=== PATIENT | female | born 1990 | race Caucasian/White ===

== ENCOUNTER 2017-11-01 16:13 | Inpatient (IN) | payer OTHER ==
[~2017-11-01] VITALS: Ht 157.5 cm; Wt 82.0 kg
[~2017-11-01 16:13] MED LIST: CEPH500 PO; CIPR500 PO; DOXY100 PO; HYDR1TAB94 PO; IBUP800 PO; PROM25 PO; Percocet 5-3251 EACH PO; Pseudoephedrine30 MG PO; Pyridium200 MG PO; TYLECOD3 PO; Verotin-Gr Cap1 EACH PO
[2018-02-25 14:55] LABS: BASOPHILS ABSOLUTE AUTO 0.04 K/mm3 (0.00-0.23); BASOPHILS PERCENT AUTO 0 % (0-2); EOSINOPHILS ABSOLUTE AUTO 0.19 K/mm3 (0.00-0.68); EOSINOPHILS PERCENT AUTO 1 % (0-6); Hematocrit 32.9 % (33.0-51.0); IMMATURE GRAN ABSOLUTE AUTO 0.15 K/mm3 (0.00-0.10); IMMATURE GRAN PERCENT AUTO 1 % (0-1); LYMPHOCYTES ABSOLUTE AUTO 2.74 K/mm3 (0.84-5.20); LYMPHOCYTES PERCENT AUTO 21 % (21-46); MONOCYTES ABSOLUTE AUTO 0.93 K/mm3 (0.16-1.47); MONOCYTES PERCENT AUTO 7 % (4-13); Mean Corpuscular HGB 30.6 pg (26.0-34.0); Mean Corpuscular HGB Conc 33.4 g/dL (31.5-36.5); Mean Corpuscular Volume 92 fL (80-100); Mean Platelet Volume 9.8 fL (9.1-12.4); NEUTROPHILS ABSOLUTE AUTO 9.09 K/mm3 (1.96-9.15); NEUTROPHILS PERCENT AUTO 69 % (41-73); Platelet Count 191 K/mm3 (150-400); RDW Coefficient Variation 14.4 % (11.7-14.2); RDW Standard Deviation 48.5 fL (35.1-46.3); Red Blood Cell Count 3.59 M/mm3 (3.80-5.20); White Blood Cell Count 13.14 K/mm3 (4.00-11.30)
[2018-02-27 08:11] LABS: PCO2 Cord - Arterial 51.1 mmHg (40-50); PO2 Cord - Arterial 18.5 mmHg (16-20); pH Cord - Arterial 7.31 (7.28-7.35)
[2018-02-27 08:13] LABS: PCO2 Cord - Venous 41.3 mmHg (40-50); PO2 Cord - Venous 31.1 mmHg (28-32); pH Umbilical Cord - Venous 7.37 (7.26-7.35)
[2018-02-28 05:39] LABS: Hematocrit 29.9 % (33.0-51.0); Hemoglobin 9.9 g/dL (11.5-16.0); Mean Corpuscular HGB 30.4 pg (26.0-34.0); Mean Corpuscular HGB Conc 33.1 g/dL (31.5-36.5); Mean Corpuscular Volume 92 fL (80-100); Mean Platelet Volume 9.9 fL (9.1-12.4); Platelet Count 143 K/mm3 (150-400); RDW Coefficient Variation 14.3 % (11.7-14.2); RDW Standard Deviation 48.2 fL (35.1-46.3); Red Blood Cell Count 3.26 M/mm3 (3.80-5.20); White Blood Cell Count 13.09 K/mm3 (4.00-11.30)
[2018-03-02] MEDS ORDERED: Percocet 5-3251 EACH PO (09:26)
[2018-03-02] MEDS ORDERED: IBUP100S PO (09:26)
== END 2018-03-02 09:45 | disposition home or self-care (01) | DRG 766 ==
LOC: BC 02-27 05:37 → PRE IP 02-27 07:30 → BC 02-27 07:30
PROVIDERS: Obstetrics & Gynecology
PROC: 10D00Z1 Extraction of Products of Conception, Low, Open Approach (ICD-10-PCS; principal; 2018-02-27 07:30)
DX: O34.211 Maternal care for low transverse scar from previous cesarean delivery (principal); Z3A.39 39 weeks gestation of pregnancy; Z37.0 Single live birth; Z88.0 Allergy status to penicillin
CPT/HCPCS: 36415; 82803; 85025; 85027; 86850; 86900; 86901; J0690; J1885; J2590; J2765; J3010; J7120; Q0163

== ENCOUNTER 2018-11-02 18:46 | Emergency (ER) | payer OTHER ==
[~2018-11-02] VITALS: Ht 157.5 cm; Wt 68.0 kg
[~2018-11-02 18:46] MED LIST changes: +IBUP100S PO
[2018-11-02] MEDS ORDERED: Cleocin HCl300 MG PO (19:59)
== END 2018-11-02 20:19 | disposition home or self-care (01) ==
LOC: ER 18:46
DX: K04.7 Periapical abscess without sinus (principal); Z88.0 Allergy status to penicillin; Z87.891 Personal history of nicotine dependence
CPT/HCPCS: 64400; 99282-25

== ENCOUNTER 2019-10-16 11:03 | Emergency (ER) | payer OTHER ==
[~2019-10-16] VITALS: Ht 160 cm; Wt 72.6 kg
[~2019-10-16 11:03] MED LIST changes: +Cleocin HCl300 MG PO
[2019-10-16] MEDS ORDERED: Ultram50 MG PO (12:17)
== END 2019-10-16 12:39 | disposition home or self-care (01) ==
LOC: ER 11:03
DX: K04.7 Periapical abscess without sinus (principal); Z88.0 Allergy status to penicillin; Z87.891 Personal history of nicotine dependence
CPT/HCPCS: 99282

== ENCOUNTER 2021-04-16 06:13 | Day surgery (SDC) | payer OTHER ==
[~2021-04-16] VITALS: Ht 157.5 cm; Wt 78.8 kg
[~2021-04-16 06:13] MED LIST changes: +LEVONOR-ETH ES1 EAC7 PO; +METO25ER PO; +Ultram50 MG PO
[2021-04-16] MEDS ORDERED: MULVITA PO (06:47)
--- NOTE | 2021-04-16 07:59 | NUR ---
04/16/21 0759 Sommer Cheng 0.15CC OF EPI 1:1000 MIXED IN TO 30CC OF 0.5% BUPIVICAINE TO MAKE 1:200,000
== END 2021-04-16 09:18 | disposition home or self-care (01) ==
LOC: ORSCSDS 06:13
PROVIDERS: Obstetrics & Gynecology
PROC: 0UT74ZZ Resection of Bilateral Fallopian Tubes, Percutaneous Endoscopic Approach (ICD-10-PCS; principal; 2021-04-16 07:30)
DX: Z30.2 Encounter for sterilization (principal); N73.6 Female pelvic peritoneal adhesions (postinfective); N80.3 Endometriosis of pelvic peritoneum; F17.210 Nicotine dependence, cigarettes, uncomplicated
CPT/HCPCS: 88302; J0171; J0690; J1100; J1885; J2250; J2405; J2704; J3010; J7120